=== PATIENT | male | born 1930 | race African-American/Black ===

== ENCOUNTER 2019-09-09 17:51 | Inpatient (IN) ==
[2019-09-09] MEDS ORDERED: ALBUTEROL/IPRATROPIUM 3 ML NEB RESP TX PRN ×3 (18:14→18:16)
[2019-09-09] MEDS ORDERED: methylPREDNISolone SOD SUC 125 MG/2 ML VIAL IV STA (18:14)
[2019-09-09] MEDS ORDERED: MAGNESIUM SULF RIDER 2 GM in PREMIX 1 EACH IV STA (18:15)
[2019-09-09 18:48] LABS: ABG Base Excess 6.3 MMOL/L (-2.5-2.5); ABG HCO3 30.1 MMOL/L (20-26); ABG Oxygen Saturation 98.2 % (95-100); ABG PCO2 42.1 MM HG (35-48); ABG PO2 97.8 MM HG (80-95); ABG TCO2 27.2 MMOL/L (23-27)
[2019-09-09 19:33] LABS: Albumin 3.7 G/DL (3.4-5.0); Bilirubin,Total 1.2 MG/DL (0.2-1.0); Calcium 8.9 MG/DL (8.5-10.1); Osmolality,Calculated 275.8 MOS/KG (273-304); Total Protein 6.6 G/DL (6.4-8.3)
[2019-09-09 19:41] LABS: Basophils % 0.3 % (0.0-0.8); Hematocrit 37.7 VOL% (42.0-52.0); Hemoglobin 11.8 GM/DL (14.0-18.0); Immature Granulocytes % 0.7 %; Immature Granulocytes Absolute 0.05 #; Lymphocytes # 0.6 10*3/uL (1.4-4.0); Lymphocytes % 7.8 % (21.2-54.2); Mean Corpuscular HGB Conc 31.3 GM/DL (32-36); Mean Corpuscular Volume 90.6 FL (87-102); Mean Platelet Volume 10.2 FL (9.6-12.0); Monocytes % 14.4 % (1.7-12.7); Neutrophils % 76.8 % (38.7-73.9); Platelet Count 153 T/CUMM (130-400); Red Blood Count 4.16 MC/CUMM (3.8-5.5); Red Cell Distribution Width 13.7 % (9.3-17.3); White Blood Count 7.2 T/CUMM (4-12)
[2019-09-09] MEDS ORDERED: MAGNESIUM SULF RIDER 4 GM in PREMIX 1 EACH IV PRN (23:36)
[2019-09-09] MEDS ORDERED: MAGNESIUM SULF RIDER 2 GM in PREMIX 1 EACH IV PRN (23:36)
[2019-09-09] MEDS ORDERED: MECLIZINE 12.5 MG TABLET PO PRN (23:36)
[2019-09-09] MEDS ORDERED: DOCUSATE SODIUM 100 MG CAPSULE PO PRN (23:36)
[2019-09-09] MEDS ORDERED: ACETAMINOPHEN 325 MG TABLET PO PRN (23:36)
[2019-09-09] MEDS ORDERED: ONDANSETRON 4 MG/2 ML VIAL IV PRN (23:36)
[2019-09-09] MEDS ORDERED: ALBUTEROL 2.5 MG/3 ML NEB RESP TX PRN (23:36)
[2019-09-10] MEDS: ALBUTEROL/IPRATROPIUM 3 ML NEB RESP TX SCH ×4 (03:47→19:44)
[2019-09-10] MEDS: methylPREDNISolone SOD SUC 40 MG/1 ML VIAL IV SCH ×3 (04:17→22:41)
[2019-09-10] MEDS: ENOXAPARIN 40 MG/0.4 ML SYRINGE SUBCUT SCH ×2 (04:23→22:40)
[2019-09-10] MEDS: cefTRIAXone 1,000 MG in SYRINGE 1 EACH IV SCH (04:25)
[2019-09-10] MEDS: AZITHROMYCIN INJ 500 MG in SODIUM CHLORIDE 0.9% 250 ML IV SCH (04:32)
[2019-09-10] MEDS: TAMSULOSIN 0.4 MG CAPSULE PO SCH ×3 (04:37→22:41)
[2019-09-10] MEDS: POTASSIUM CHLORIDE 8 MEQ CAPSULE PO SCH ×3 (04:42→22:40)
[2019-09-10] MEDS: BUDESONIDE/FORMOTEROL 160-4.5 INHALER 6 GM INH SCH ×3 (04:43→22:41)
[2019-09-10 05:00] LABS: Hemoglobin 11.3 GM/DL (14.0-18.0); Immature Granulocytes % 0.4 %; Immature Granulocytes Absolute 0.02 #; Lymphocytes # 0.3 10*3/uL (1.4-4.0); Lymphocytes % 5.3 % (21.2-54.2); Mean Corpuscular HGB Conc 31.4 GM/DL (32-36); Mean Corpuscular Volume 89.3 FL (87-102); Mean Platelet Volume 10.4 FL (9.6-12.0); Monocytes % 4.6 % (1.7-12.7); Neutrophils % 89.7 % (38.7-73.9); Platelet Count 156 T/CUMM (130-400); Red Blood Count 4.03 MC/CUMM (3.8-5.5); Red Cell Distribution Width 13.6 % (9.3-17.3); White Blood Count 5.3 T/CUMM (4-12)
[2019-09-10 06:03] LABS: Calcium 8.6 MG/DL (8.5-10.1); Osmolality,Calculated 282.4 MOS/KG (273-304); Thyroid Stimulating Hormone 0.801 uIU/ml (0.358-3.74)
[2019-09-10] MEDS: THEOPHYLLINE ER (24 HR) 300 MG CAPSULE PO SCH ×3 (07:13→22:40)
[2019-09-10] MEDS: LEVOTHYROXINE 25 MCG TABLET PO SCH (07:23)
[2019-09-10] MEDS: POTASSIUM CHLORIDE 20 MEQ TABLET PO PRN ×4 (09:07→16:21)
[2019-09-10] MEDS: ROSUVASTATIN 10 MG TABLET PO SCH (09:07)
[2019-09-10] MEDS: FUROSEMIDE 20 MG TABLET PO SCH (09:08)
[2019-09-10] MEDS ORDERED: LIDOCAINE 2% 5 ML VIAL ONE (11:05)
[2019-09-11] MEDS: ALBUTEROL/IPRATROPIUM 3 ML NEB RESP TX SCH ×4 (00:24→19:46)
[2019-09-11] MEDS: cefTRIAXone 1,000 MG in SYRINGE 1 EACH IV SCH (00:36)
[2019-09-11] MEDS: AZITHROMYCIN INJ 500 MG in SODIUM CHLORIDE 0.9% 250 ML IV SCH (00:37)
[2019-09-11] MEDS: traZODone 50 MG TABLET PO PRN (00:46)
[2019-09-11 05:52] LABS: Hematocrit 31.5 VOL% (42.0-52.0); Hemoglobin 9.9 GM/DL (14.0-18.0); Immature Granulocytes % 0.6 %; Immature Granulocytes Absolute 0.07 #; Lymphocytes # 0.3 10*3/uL (1.4-4.0); Lymphocytes % 2.2 % (21.2-54.2); Mean Corpuscular HGB Conc 31.4 GM/DL (32-36); Mean Corpuscular Volume 90.3 FL (87-102); Mean Platelet Volume 10.5 FL (9.6-12.0); Monocytes % 6.3 % (1.7-12.7); Neutrophils % 90.9 % (38.7-73.9); Platelet Count 158 T/CUMM (130-400); Red Blood Count 3.49 MC/CUMM (3.8-5.5)
[2019-09-11] MEDS: methylPREDNISolone SOD SUC 40 MG/1 ML VIAL IV SCH ×3 (06:03→20:30)
[2019-09-11] MEDS: LEVOTHYROXINE 25 MCG TABLET PO SCH (06:03)
[2019-09-11 06:17] LABS: Calcium 8.1 MG/DL (8.5-10.1)
[2019-09-11 06:34] LABS: Band Neutrophils 3 % (0-10); Hypochromasia 1+; Lymphocytes 1 % (20-55); Segmented Neutrophils 92 % (50-85); Total Cells Counted 100
[2019-09-11 06:35] LABS: Microcytosis Slight; Platelet Estimate Adequate; Polychromasia Slight
[2019-09-11] MEDS: POTASSIUM CHLORIDE 8 MEQ CAPSULE PO SCH ×2 (09:36→20:32)
[2019-09-11] MEDS: FUROSEMIDE 20 MG TABLET PO SCH (09:36)
[2019-09-11] MEDS: ROSUVASTATIN 10 MG TABLET PO SCH (09:36)
[2019-09-11] MEDS: TAMSULOSIN 0.4 MG CAPSULE PO SCH ×2 (09:37→20:31)
[2019-09-11] MEDS: BUDESONIDE/FORMOTEROL 160-4.5 INHALER 6 GM INH SCH ×2 (09:37→20:30)
[2019-09-11] MEDS: THEOPHYLLINE ER (24 HR) 300 MG CAPSULE PO SCH ×2 (09:37→20:32)
[2019-09-11] MEDS: BENZONATATE 100 MG CAPSULE PO SCH (20:31)
[2019-09-11] MEDS: ENOXAPARIN 30 MG/0.3 ML SYRINGE SUBCUT SCH (21:55)
[2019-09-12] MEDS: ALBUTEROL/IPRATROPIUM 3 ML NEB RESP TX SCH ×4 (01:27→19:30)
[2019-09-12] MEDS: AZITHROMYCIN INJ 500 MG in SODIUM CHLORIDE 0.9% 250 ML IV SCH (01:30)
[2019-09-12] MEDS: cefTRIAXone 1,000 MG in SYRINGE 1 EACH IV SCH (01:47)
[2019-09-12 05:37] LABS: Basophils % 0.1 % (0.0-0.8); Hematocrit 37.5 VOL% (42.0-52.0); Hemoglobin 11.6 GM/DL (14.0-18.0); Immature Granulocytes % 0.8 %; Immature Granulocytes Absolute 0.09 #; Lymphocytes # 0.2 10*3/uL (1.4-4.0); Lymphocytes % 2.2 % (21.2-54.2); Mean Corpuscular HGB Conc 30.9 GM/DL (32-36); Mean Corpuscular Volume 89.7 FL (87-102); Mean Platelet Volume 10.8 FL (9.6-12.0); Monocytes % 3.3 % (1.7-12.7); Neutrophils % 93.6 % (38.7-73.9); Platelet Count 179 T/CUMM (130-400); Red Blood Count 4.18 MC/CUMM (3.8-5.5); Red Cell Distribution Width 13.8 % (9.3-17.3); White Blood Count 10.7 T/CUMM (4-12)
[2019-09-12] MEDS: methylPREDNISolone SOD SUC 40 MG/1 ML VIAL IV SCH ×3 (05:44→22:09)
[2019-09-12] MEDS: LEVOTHYROXINE 25 MCG TABLET PO SCH (05:46)
[2019-09-12 05:51] LABS: Calcium 8.1 MG/DL (8.5-10.1); Osmolality,Calculated 284.4 MOS/KG (273-304)
[2019-09-12 06:35] LABS: Anisocytosis 1+; Band Neutrophils 13 % (0-10); Nucleated Red Blood Cells 1 (0-5); Platelet Estimate Normal; Poikilocytosis Slight; Segmented Neutrophils 84 % (50-85); Total Cells Counted 100
[2019-09-12] MEDS: ROSUVASTATIN 10 MG TABLET PO SCH (09:51)
[2019-09-12] MEDS: FUROSEMIDE 20 MG TABLET PO SCH (09:52)
[2019-09-12] MEDS: BENZONATATE 100 MG CAPSULE PO SCH ×3 (09:53→22:10)
[2019-09-12] MEDS: POTASSIUM CHLORIDE 8 MEQ CAPSULE PO SCH ×2 (09:54→22:09)
[2019-09-12] MEDS: THEOPHYLLINE ER (24 HR) 300 MG CAPSULE PO SCH ×2 (09:54→22:10)
[2019-09-12] MEDS: TAMSULOSIN 0.4 MG CAPSULE PO SCH ×2 (09:54→22:10)
[2019-09-12] MEDS: BUDESONIDE/FORMOTEROL 160-4.5 INHALER 6 GM INH SCH ×2 (09:55→22:12)
[2019-09-12] MEDS: ENOXAPARIN 30 MG/0.3 ML SYRINGE SUBCUT SCH (22:09)
[2019-09-12] MEDS: traZODone 50 MG TABLET PO PRN (22:10)
[2019-09-13] MEDS: ALBUTEROL/IPRATROPIUM 3 ML NEB RESP TX SCH ×3 (00:58→13:35)
[2019-09-13] MEDS: cefTRIAXone 1,000 MG in SYRINGE 1 EACH IV SCH (01:00)
[2019-09-13] MEDS: AZITHROMYCIN INJ 500 MG in SODIUM CHLORIDE 0.9% 250 ML IV SCH (01:01)
[2019-09-13] MEDS: methylPREDNISolone SOD SUC 40 MG/1 ML VIAL IV SCH ×2 (05:37→12:18)
[2019-09-13] MEDS: LEVOTHYROXINE 25 MCG TABLET PO SCH (05:37)
[2019-09-13 06:04] LABS: Calcium 8.1 MG/DL (8.5-10.1); Osmolality,Calculated 285.4 MOS/KG (273-304)
[2019-09-13 06:13] LABS: Hematocrit 34.2 VOL% (42.0-52.0); Hemoglobin 10.8 GM/DL (14.0-18.0); Immature Granulocytes % 0.8 %; Immature Granulocytes Absolute 0.06 #; Lymphocytes # 0.2 10*3/uL (1.4-4.0); Lymphocytes % 2.5 % (21.2-54.2); Mean Corpuscular HGB Conc 31.6 GM/DL (32-36); Mean Corpuscular Volume 89.3 FL (87-102); Mean Platelet Volume 10.7 FL (9.6-12.0); Neutrophils % 92.7 % (38.7-73.9); Platelet Count 181 T/CUMM (130-400); Red Blood Count 3.83 MC/CUMM (3.8-5.5); Red Cell Distribution Width 13.6 % (9.3-17.3); White Blood Count 7.5 T/CUMM (4-12)
[2019-09-13 06:56] LABS: Anisocytosis 1+; Band Neutrophils 13 % (0-10); Lymphocytes 4 % (20-55); Macrocytosis 1+; Platelet Estimate Normal; Segmented Neutrophils 81 % (50-85); Total Cells Counted 100
[2019-09-13 06:57] LABS: Burr Cells Few; Poikilocytosis Slight
[2019-09-13] MEDS: TAMSULOSIN 0.4 MG CAPSULE PO SCH (08:14)
[2019-09-13] MEDS: THEOPHYLLINE ER (24 HR) 300 MG CAPSULE PO SCH (08:14)
[2019-09-13] MEDS: FUROSEMIDE 20 MG TABLET PO SCH (08:15)
[2019-09-13] MEDS: ROSUVASTATIN 10 MG TABLET PO SCH (08:15)
[2019-09-13] MEDS: POTASSIUM CHLORIDE 8 MEQ CAPSULE PO SCH (08:15)
[2019-09-13] MEDS: BENZONATATE 100 MG CAPSULE PO SCH ×2 (08:15→14:18)
[2019-09-13] MEDS: BUDESONIDE/FORMOTEROL 160-4.5 INHALER 6 GM INH SCH ×2 (08:15→08:16)
[2019-09-13 12:02] VITALS: BP 118/73
== END 2019-09-13 16:45 | disposition home health service (06) | DRG 190 ==
LOC: EDBD → EDUNIT# → N.ED 17:51 → N.EDINP 21:34 → INTOOBSV 21:34 → N.5E 21:46 → SUATTDRO 09-11 15:27
PROVIDERS: ADMIT Family Medicine; ATTEND Internal Medicine

== ENCOUNTER 2019-09-14 17:37 | Observation (INO) ==
[2019-09-14] MEDS ORDERED: FUROSEMIDE 40 MG/4 ML VIAL IV STA (18:00)
[2019-09-14] MEDS ORDERED: ONDANSETRON 4 MG/2 ML VIAL IV STA (18:00)
[2019-09-14] MEDS ORDERED: methylPREDNISolone SOD SUC 125 MG/2 ML VIAL IV STA (18:00)
[2019-09-14] MEDS ORDERED: PIPERACILLIN/TAZOBACTAM 3,375 MG in SODIUM CHLORIDE 0.9% 100 ML IV STA (18:00)
[2019-09-14 18:22] LABS: ABG Base Excess 3.5 MMOL/L (-2.5-2.5); ABG HCO3 28.2 MMOL/L (20-26); ABG Oxygen Saturation 98.5 % (95-100); ABG PCO2 42.8 MM HG (35-48); ABG PH 7.436 (7.35-7.45); ABG PO2 121.1 MM HG (80-95); ABG TCO2 29.5 MMOL/L (23-27); Basophils % 0.2 % (0.0-0.8); Eosinophils % 0.1 % (0.00-10.9); Hematocrit 41.3 VOL% (42.0-52.0); Immature Granulocytes % 1.9 %; Immature Granulocytes Absolute 0.19 #; Lymphocytes % 10.3 % (21.2-54.2); Mean Corpuscular HGB Conc 31.5 GM/DL (32-36); Mean Corpuscular Volume 89.8 FL (87-102); Mean Platelet Volume 9.6 FL (9.6-12.0); Monocytes % 7.4 % (1.7-12.7); Neutrophils % 80.1 % (38.7-73.9); Platelet Count 186 T/CUMM (130-400); Red Cell Distribution Width 13.7 % (9.3-17.3); White Blood Count 9.8 T/CUMM (4-12)
[2019-09-14 18:34] LABS: INR 1.1; PT Patient Result 11.7 SECS (9.6-12.2)
[2019-09-14 18:50] LABS: Albumin 3.1 G/DL (3.4-5.0); Bilirubin,Total 0.7 MG/DL (0.2-1.0); Calcium 8.4 MG/DL (8.5-10.1); Osmolality,Calculated 286.3 MOS/KG (273-304); Total Protein 6.2 G/DL (6.4-8.3)
[2019-09-14 19:45] LABS: Apearance,Urine CLEAR (Clear); Bilirubin,Urine Negative (Negative); Blood, Urine Small mg/dL (Negative); Glucose,Urine (UA) Negative (Negative); Ketones,Urine Negative (Negative); Mucus,Urine Occasional /LPF (Occasional); Nitrite,Urine Negative (Negative); Protein,Urine 100 MG/DL; RBC,Urine 2 /HPF (0-4); Squamous Epithelial Cell,Urine Occasional /HPF (0-10); Urine Color Straw (Yellow); Urine Specific Gravity 1.012 (1.001-1.035); Urine Urobilinogen < 2.0 EU/DL (0.2-1.0); WBC,Urine 6 /HPF (0-6)
[2019-09-14] MEDS ORDERED: cefTRIAXone 1,000 MG in SODIUM CHLORIDE 0.9% 100 ML IV STA (19:51)
[2019-09-14] MEDS ORDERED: hydrALAZINE 20 MG/1 ML VIAL IV PRN (21:21)
[2019-09-14] MEDS ORDERED: guaiFENesin/DM ER 600-30 MG TABLET PO PRN (21:21)
[2019-09-14] MEDS ORDERED: diphenhydrAMINE CAP 25 MG CAPSULE PO PRN (21:21)
[2019-09-14] MEDS ORDERED: ZALEPLON 5 MG CAPSULE PO PRN (21:21)
[2019-09-14] MEDS ORDERED: NICOTINE 21 MG/24 HR PATCH TRANSDERM PRN (21:21)
[2019-09-14] MEDS ORDERED: BISACODYL 5 MG TABLET PO PRN (21:21)
[2019-09-14] MEDS ORDERED: ONDANSETRON 4 MG/2 ML VIAL IV PRN (21:21)
[2019-09-14] MEDS ORDERED: ACETAMINOPHEN 325 MG TABLET PO PRN (21:21)
[2019-09-14] MEDS ORDERED: CALCIUM CARBONATE CHEW 500 MG TABLET PO PRN (21:21)
[2019-09-14] MEDS ORDERED: FUROSEMIDE 20 MG TABLET PO PRN (22:54)
[2019-09-14] MEDS ORDERED: MECLIZINE 12.5 MG TABLET PO PRN (22:54)
[2019-09-15] MEDS: ALBUTEROL/IPRATROPIUM 3 ML NEB RESP TX SCH ×4 (00:44→19:13)
[2019-09-15] MEDS ORDERED: PIPERACILLIN/TAZOBACTAM 3,375 MG in SODIUM CHLORIDE 0.9% 100 ML IV SCH (02:30)
[2019-09-15 03:12] LABS: ABG Base Excess 5.7 MMOL/L (-2.5-2.5); ABG HCO3 29.7 MMOL/L (20-26); ABG Oxygen Saturation 98.1 % (95-100); ABG PCO2 40.8 MM HG (35-48); Allen Test Positive; Pt O2 Delivery Device Other
[2019-09-15] MEDS: methylPREDNISolone SOD SUC 40 MG/1 ML VIAL IV SCH ×2 (06:11→20:30)
[2019-09-15] MEDS: LEVOTHYROXINE 25 MCG TABLET PO SCH (06:11)
[2019-09-15 08:32] LABS: Basophils % 0.1 % (0.0-0.8); Hematocrit 39.7 VOL% (42.0-52.0); Hemoglobin 12.5 GM/DL (14.0-18.0); Immature Granulocytes % 1.4 %; Immature Granulocytes Absolute 0.11 #; Lymphocytes # 0.3 10*3/uL (1.4-4.0); Lymphocytes % 3.9 % (21.2-54.2); Mean Corpuscular HGB Conc 31.5 GM/DL (32-36); Mean Corpuscular Volume 89.6 FL (87-102); Mean Platelet Volume 10.2 FL (9.6-12.0); Monocytes % 3.3 % (1.7-12.7); Neutrophils % 91.3 % (38.7-73.9); Platelet Count 190 T/CUMM (130-400); Red Blood Count 4.43 MC/CUMM (3.8-5.5); Red Cell Distribution Width 13.6 % (9.3-17.3); White Blood Count 7.9 T/CUMM (4-12)
[2019-09-15 08:54] LABS: Calcium 8.5 MG/DL (8.5-10.1); Osmolality,Calculated 284.4 MOS/KG (273-304)
[2019-09-15] MEDS ORDERED: Budesonide-Formoterol [Symbicort] 2 PUFF INH SCH (09:00)
[2019-09-15] MEDS: AZITHROMYCIN 250 MG TABLET PO SCH (09:24)
[2019-09-15] MEDS: TAMSULOSIN 0.4 MG CAPSULE PO SCH ×2 (09:24→20:30)
[2019-09-15] MEDS: POTASSIUM CHLORIDE 8 MEQ CAPSULE PO SCH (09:24)
[2019-09-15 10:20] LABS: Band Neutrophils 1 % (0-10); Lymphocytes 3 % (20-55); Platelet Estimate Adequate; Segmented Neutrophils 93 % (50-85); Total Cells Counted 100
[2019-09-15] MEDS ORDERED: ENOXAPARIN 30 MG/0.3 ML SYRINGE SUBCUT SCH ×2 (15:00→21:00)
[2019-09-15] MEDS ORDERED: ROSUVASTATIN 10 MG TABLET PO SCH (21:00)
[2019-09-16] MEDS: ALBUTEROL/IPRATROPIUM 3 ML NEB RESP TX SCH ×2 (01:58→07:03)
[2019-09-16 05:22] LABS: Basophils % 0.1 % (0.0-0.8); Hematocrit 34.9 VOL% (42.0-52.0); Hemoglobin 11.1 GM/DL (14.0-18.0); Immature Granulocytes % 1.4 %; Immature Granulocytes Absolute 0.15 #; Lymphocytes # 0.3 10*3/uL (1.4-4.0); Lymphocytes % 2.7 % (21.2-54.2); Mean Corpuscular HGB Conc 31.8 GM/DL (32-36); Mean Corpuscular Volume 88.8 FL (87-102); Mean Platelet Volume 10.2 FL (9.6-12.0); Monocytes % 3.5 % (1.7-12.7); Neutrophils % 92.3 % (38.7-73.9); Platelet Count 197 T/CUMM (130-400); Red Blood Count 3.93 MC/CUMM (3.8-5.5); Red Cell Distribution Width 13.4 % (9.3-17.3); White Blood Count 10.8 T/CUMM (4-12)
[2019-09-16 05:44] LABS: Band Neutrophils 1 % (0-10); Lymphocytes 6 % (20-55); Platelet Estimate Adequate; Segmented Neutrophils 91 % (50-85); Total Cells Counted 100
[2019-09-16 05:48] LABS: Calcium 9.1 MG/DL (8.5-10.1); Osmolality,Calculated 290.5 MOS/KG (273-304)
[2019-09-16] MEDS: methylPREDNISolone SOD SUC 40 MG/1 ML VIAL IV SCH (06:11)
[2019-09-16] MEDS: LEVOTHYROXINE 25 MCG TABLET PO SCH (06:11)
[2019-09-16 07:53] VITALS: BP 125/81
[2019-09-16] MEDS ORDERED: PANTOPRAZOLE 40 MG TABLET PO SCH (09:00)
[2019-09-16] MEDS: TAMSULOSIN 0.4 MG CAPSULE PO SCH (09:38)
[2019-09-16] MEDS: AZITHROMYCIN 250 MG TABLET PO SCH (09:38)
[2019-09-16] MEDS: POTASSIUM CHLORIDE 8 MEQ CAPSULE PO SCH (09:38)
== END 2019-09-16 14:20 | disposition hospice, home (50) ==
LOC: EDUNIT# → EDBD → N.ED 17:37 → N.EDINP 17:37 → SUATTDRO 21:46 → N.4E 22:03
PROVIDERS: ADMIT Internal Medicine; ATTEND Internal Medicine